=== PATIENT | female | born 1985 | race Caucasian/White ===

== ENCOUNTER 2022-07-25 13:36 | Emergency (ER) | payer OTHER ==
[~2022-07-25] VITALS: Ht 175.3 cm; Wt 160.0 kg
[2022-07-25 13:45] VITALS: BP 154/77
== END 2022-07-25 14:00 | disposition left against medical advice (07) ==
LOC: EMS 13:36
DX: Z53.21 Procedure and treatment not carried out due to patient leaving prior to being seen by health care provider (principal)

== ENCOUNTER 2023-04-05 13:41 | Emergency (ER) | payer OTHER ==
[~2023-04-05] VITALS: Ht 175.3 cm; Wt 159.1 kg
[2023-04-05 13:58] VITALS: BP 141/67; PULSE 88; RESP 18; TEMP 98
[2023-04-05] MEDS ORDERED: ERYTHROMYCIN 0.5% 3.5 GM TUBE OPHTHALMIC OINTMENT OD ONE (15:00)
== END 2023-04-05 15:18 | disposition home or self-care (01) ==
LOC: EMS 14:39
DX: H00.012 Hordeolum externum right lower eyelid (principal); F41.9 Anxiety disorder, unspecified; N83.209 Unspecified ovarian cyst, unspecified side; Z87.440 Personal history of urinary (tract) infections
CPT/HCPCS: 99282; Z7502; Z7610

== ENCOUNTER 2023-05-06 15:26 | Emergency (ER) | payer OTHER ==
[~2023-05-06] VITALS: Ht 175.3 cm; Wt 159.1 kg
[2023-05-06 15:53] LABS: APPEARANCE,URINE HAZY (CLEAR); BILIRUBIN,URINE NEGATIVE (NEGATIVE); GLUCOSE, URINE (UA) NEGATIVE (NEGATIVE); KETONES,URINE NEGATIVE (NEGATIVE); LEUKOCYTE ESTERASE ,URINE NEGATIVE (NEGATIVE); NITRATE,URINE NEGATIVE (NEGATIVE); OCCULT BLOOD,URINE LARGE (NEGATIVE); PROTEIN,URINE TRACE mg/dL (NEGATIVE); SPECIFIC GRAVITIY, URINE 1.012 (1.003-1.030); UROBILINOGEN,URINE <=1.0 mg/dL (<=1.0)
[2023-05-06 16:38] LABS: RBC,URINE 51-100 /HPF (0-2)
[2023-05-06 16:39] LABS: BACTERIA,URINE None Seen /HPF (None Seen); SQUAMOUS EPITHELIAL CELL,UR Few /LPF (None Seen); WBC,URINE 0-2 /HPF (0-5)
[2023-05-06] MEDS ORDERED: HYDROCODONE/ACETAMINOPHEN 5-325 MG TABLET PO ONE (17:45)
[2023-05-06] MEDS ORDERED: IBUPROFEN 600 MG TABLET PO ONE (17:45)
[2023-05-06 18:55] LABS: ANION GAP 9 mmol/L (8-16); CALCIUM, TOTAL 9.3 mg/dL (8.8-10.5); CARBON DIOXIDE 25 mmol/L (22-29); CHLORIDE 104 mmol/L (98-107); CREATININE 0.75 mg/dL (0.60-1.30); GLOMERULAR FILTR. RATE CALC > 60 mL/min (>60); GLUCOSE,RANDOM 108 mg/dL (70-110); POTASSIUM 3.9 mmol/L (3.5-5.1); SODIUM SERUM 138 mmol/L (136-145)
[2023-05-06 19:01] LABS: ALANINE AMINOTRANSFERASE 32 U/L (12-78); ALBUMIN 3.7 g/dL (3.4-5.0); ALKALINE PHOSPHATASE 120 U/L (46-116); ASPARTATE AMINOTRANSFERASE 20 U/L (15-37); BILIRUBIN,TOTAL 0.7 mg/dL (0.1-1.0); LIPASE 18 U/L (16-77)
[2023-05-06] MEDS ORDERED: DOCU-352 PO (19:31)
[2023-05-06] MEDS ORDERED: HYDR-4072 PO (19:31)
[2023-05-06] MEDS ORDERED: IBUP-1554 PO (19:31)
[2023-05-06 19:58] VITALS: BP 131/70; PULSE 88; RESP 16; TEMP 97.3
== END 2023-05-06 20:07 | disposition home or self-care (01) ==
LOC: EMS 15:27
DX: N20.9 Urinary calculus, unspecified (principal); F41.9 Anxiety disorder, unspecified; Z98.890 Other specified postprocedural states
CPT/HCPCS: 74176; 80053; 81001; 83690; 84703; 99284

== ENCOUNTER 2024-01-12 20:39 | Emergency (ER) | payer OTHER ==
[~2024-01-12] VITALS: Ht 175.3 cm; Wt 150.0 kg
[~2024-01-12 20:39] MED LIST: DOCU-412 PO; HYDR-4072 PO; IBUP-1554 PO
[2024-01-12 21:10] VITALS: TEMP 98.2
[2024-01-12] MEDS ORDERED: FLUORESCEIN SODIUM 1 MG STRIP ONE (22:50)
[2024-01-12] MEDS: PROPARACAINE HCL 0.5% 15 ML OPHTHALMIC SOLUTION OD ONE (22:53)
[2024-01-12] MEDS: DiphenhydrAMINE HCL 25 MG CAPSULE PO ONE (22:53)
[2024-01-12] MEDS: ERYTHROMYCIN 0.5% 3.5 GM TUBE OPHTHALMIC OINTMENT OD ONE (23:15)
[2024-01-12] MEDS: SULFACETAMIDE SODIUM 10% 15 ML OPHTHALMIC SOLUTION OD ONE (23:15)
[2024-01-12] MEDS ORDERED: DIPH-1243 PO (23:20)
[2024-01-12 23:25] VITALS: BP 137/88; PULSE 79; RESP 18
== END 2024-01-12 23:26 | disposition home or self-care (01) ==
LOC: EMS 20:39
DX: S00.211A Abrasion of right eyelid and periocular area, initial encounter (principal); T78.40XA Allergy, unspecified, initial encounter; F41.9 Anxiety disorder, unspecified; Z90.722 Acquired absence of ovaries, bilateral; Z98.890 Other specified postprocedural states; X58.XXXA Exposure to other specified factors, initial encounter; Y93.89 Activity, other specified; Y92.89 Other specified places as the place of occurrence of the external cause; Y99.8 Other external cause status
CPT/HCPCS: 99283

== ENCOUNTER 2024-06-09 15:02 | Emergency (ER) | payer OTHER ==
[~2024-06-09] VITALS: Ht 175.3 cm; Wt 140.0 kg
[~2024-06-09 15:02] MED LIST changes: +DIPH-1243 PO
[2024-06-09 15:25] LABS: COVID AG,FIA SOURCE NASAL SWAB
[2024-06-09 15:33] VITALS: TEMP 98.7
[2024-06-09 15:47] LABS: RAPID GROUP A STREP NEGATIVE (NEGATIVE); SARS-COV2 (COVID) ANTIGEN,FIA Negative (Negative)
[2024-06-09 15:48] LABS: INFLUENZA TYPE A NEGATIVE FOR TYPE A (NEGATIVE); INFLUENZA TYPE B NEGATIVE FOR TYPE B (NEGATIVE)
[2024-06-09] MEDS ORDERED: CEPH-558 PO (16:13)
[2024-06-09] MEDS ORDERED: ACET-2080 PO (16:13)
[2024-06-09] MEDS: ACETAMINOPHEN/CODEINE 300-30 MG TABLET PO ONE (16:21)
[2024-06-09] MEDS: IBUPROFEN 600 MG TABLET PO ONE (16:21)
[2024-06-09 16:27] VITALS: BP 160/87; PULSE 89; RESP 16; O2SAT 99
== END 2024-06-09 16:50 | disposition home or self-care (01) ==
LOC: EMS 15:02
DX: J02.9 Acute pharyngitis, unspecified (principal); R50.9 Fever, unspecified; F41.9 Anxiety disorder, unspecified; Z90.721 Acquired absence of ovaries, unilateral; Z98.890 Other specified postprocedural states; Z20.822 Contact with and (suspected) exposure to COVID-19
CPT/HCPCS: 87430; 87804; 99283